=== PATIENT | male | born 1960 | race Caucasian/White ===

== ENCOUNTER → 2016-10-17 | Day surgery (SDC) | payer BC ==
[2016-10-03 13:18] VITALS: Ht 185.4 cm; Wt 84.1 kg
--- NOTE | 2016-10-16 14:50 | History and Physical: Surg Cnt ---
History & Physical Date Oct 16, 2016. Chief Complaint chronic sinusitis History of Present Illness The patient is a 55 year old male with complaints of recurrent and chronic sinusitis Additional History Hepatic Disease: No Endocrine Disorder: No Kidney Disease: No Hypertension: No Heart Disease: No Bleeding Tendencies: No Infectious Diseases: No Other: sarcoid Allergies Coded Allergies: NO KNOWN DRUG ALLERGIES (Verified Allergy, Unknown, ., 10/03/16) Home Medications Scheduled Fexofenadine Hcl (Kia), 180 MG PO QAM Fluticasone Propionate (Nasal) (Flonase Allergy Relief), 1 SPRAY ELTON QAM Scheduled PRN Ibuprofen (Ibuprofen), 1 CAP PO DIRECTED PRN for Pain Pseudoephedrine (Sudafed), 30 MG PO DAILY PRN for PRN Physical Examination Skin: warm/dry, no rash Eyes: normal inspection, EOMI, sclerae normal ENT: normal ENT inspection, pharynx normal Head: normocephalic, atraumatic Neck: supple, no adenopathy, trachea midline Respiratory/Chest: lungs clear, normal breath sounds, no respiratory distress Cardiovascular: regular rate, rhythm, no edema, no murmur Abdomen / GI: normal bowel sounds, non tender Back: normal inspection Extremities: normal inspection, normal range of motion Neurologic/Psych: no motor/sensory deficits, alert, normal reflexes, oriented x 3 Diagnosis chronic sinusitis/septal deviation Plan of Treatment septoplasty and endoscopic sinus surgery
[~2016-10-17] VITALS: Ht 185.4 cm; Wt 84.1 kg
[~2016-10-17] MED LIST: ATROPINE SULFATE 0.1 MG/ML 5ML SYR IV PRN; BACITRACIN OINT 15 GM TUBE ONE; CEFAZOLIN 2000 MG/60 ML D5W 60 ML IV SCH; DEXAMETHASONE SOD INJ 4 MG/ML VIAL ONE; EpHEDrine SULFATE 50MG/5ML SYR ONE; EpHEDrine SULFATE INJ 50 MG/ML AMP IV PRN; EpINEphrine INJ 1MG/ML AMP 1 MG/ML AMP ONE; FENTANYL CITRATE INJ 50 MCG/1 ML 2 ML VIAL IV PRN; FENTANYL CITRATE INJ 50 MCG/1 ML 2 ML VIAL ONE; FEXO1TAB46 PO; FLUT0.15 NAE; GELATIN SPONGE 12-7MM ONE; IBUP1CAP9 PO; LACTATED RINGER'S 1000ML 1,000 ML IV SCH; LIDO 2%/EPINEPHRINE 1:100000 20 ML VIAL INFIL ONE; LIDOCAINE 4% MPF SOAK 5 ML = 1 DOSE TOP ONE; LIDOCAINE HCL 2% 2 ML VIAL (20MG/ML) ONE; MIDAZOLAM HCL 1 MG/ML 2ML VIAL ONE; ONDANSETRON INJ 2 MG/ML 2 ML VIAL ONE; OXYC-57 PO; OXYCODONE/ACETAMINOPHEN 5-325 TAB PO PRN; OXYMETAZOLINE HCL 0.05% NA SPR 15 ML BTL SCH; PROPOFOL IV EMULSION 10 MG/ML 20 ML VIAL IV ONE; PSEU30TA20 PO; SODIUM CHLORIDE 0.9% 1000ML 1,000 ML IV SCH
--- NOTE | 2016-10-17 10:47 | History & Physical Bridge Note ---
H&P Re-Evaluation Bridge Note: I have examined the patient, reviewed the History & Physical and in the interval since the performance of the History & Physical I have noted the following changes of clinical significance: No changes noted
--- NOTE | 2016-10-17 10:49 | Discharge Instructions-SurgCtr ---
Discharge Instructions Date of Service Oct 17, 2016. Visit Reason for Visit: Chronic Sinusitis, Septal Deviation;Pre-Op Discharge Discharge Diagnosis / Problem: same Discharge Goals Goal(s): Improve disease control Activity Recommendations Activity Limitations: resume your previous activity Anesthesia . Post Anesthesia Instructions: If you have had General Anesthesia or IV Sedation: * Do not drive today. * Resume driving when surgeon permits. * Do not make important decisions or sign legal documents today. * Call surgeon for: 1. Temperature elevations greater than 101 degrees F. 2. Uncontrollable pain. 3. Excessive bleeding. 4. Persistent nausea and vomiting. 5. Medication intolerance (nausea, vomiting or rash). * For nausea and vomiting use only clear liquids such as: tea, soda, bouillon until nausea subsides, then gradually increase diet as tolerated. * If you have any concerns or questions, call your surgeon's office. If physician is unavailable and it is an emergency, call 911 or go to the nearest emergency room. . Instructions / Follow-Up Instructions / Follow-Up ACTIVITY RECOMMENDATIONS: * Being up and around is good, but no strenuous activity, heavy lifting or physical exertion for one week. * Keep your head elevated 30 degrees when lying down or sleeping. * Do not blow your nose for 48 hours, sniff back instead. * Avoid hot showers. OVER THE COUNTER MEDICATIONS: * You may use Tylenol * Avoid aspirin or aspirin containing products, e.g. as they may increase bleeding. SPECIAL CARE INSTRUCTIONS: * Expect to have bloody drainage from your nose and/or down your throat for one to three days. Change drip pad as needed. * Begin irrigating your nose with saline solution today, at least six to ten times per day and sniff back to help remove old clots or crust. * You may experience nasal and facial congestion, pain and pressure, this is normal. * Please call with any significant and/or progressive pain, redness, swelling around the eyes, visual changes, fever of 101.5 degrees F, active bleeding or any problems or concerns. * If active bleeding occurs, spray the nose three times at one minute intervals with Afrin spray and call or cell phone: . If unable to reach the doctor, go to the nearest Emergency Department. Special Diet: * Avoid extremely hot fluids. FOLLOW UP VISIT: Follow-up Visit with Dr. Rosario If not already scheduled, please call to schedule. Diet Recommendations Home Diet: no limitations Pending Studies Studies pending at discharge: no Medical Emergencies . Who to Call and When: Medical Emergencies: If at any time you feel your situation is an emergency, please call 911 immediately. . Non-Emergent Contact Non-Emergency issues call your: Primary Care Provider . . "Provider Documentation" section prepared by Swathi Rosario. [place] Drug Monitoring Program Search Results: no issues identified
--- NOTE | 2016-10-17 12:31 | Anesthesia Progress Nt - [facility] ---
Anesthesia Post Op Note Date & Time Oct 17, 2016 at 12:31 Vital Signs Pain Intensity: 0 Vital Signs Past 12 Hours Date Time Temp Pulse Resp B/P Pulse Ox O2 Delivery O2 Flow Rate FiO2 10/17/16 12:16 36.3 79 16 121/86 100 Humidified Oxygen 6 Diffusion Mask 10/17/16 08:44 36.9 68 16 142/88 98 Room Air Notes Mental Status: alert / awake / arousable, participated in evaluation Pt Amnestic to Procedure: Yes Nausea / Vomiting: adequately controlled Pain: adequately controlled Airway Patency, RR, SpO2: stable & adequate BP & HR: stable & adequate Hydration State: stable & adequate Anesthetic Complications: no major complications apparent
[2016-10-17 12:59] VITALS: TEMP 36.8
--- NOTE | 2016-10-17 13:02 | OPERATIVE REPORT ---
DATE OF OPERATION: 10/17/2016 PREOPERATIVE DIAGNOSIS: Chronic sinusitis. POSTOPERATIVE DIAGNOSIS: Same. PROCEDURE: Right and left frontal, right and left sphenoid, right and left total ethmoid and right and left maxillary sinus antrostomies. SURGEON: Dr. Rosario. ANESTHESIA: General LMA. COMPLICATIONS: None. BLOOD LOSS: 50 mL. HISTORY OF PRESENT ILLNESS: A 55-year-old gentleman with significant sinusitis since 1984. Because of the recurrent infections, the patient requested definitive treatment. PROCEDURE: The patient brought to the operating room and placed supine position. General anesthesia was induced using LMA, prepped, draped in usual sterile manner. The nose was decongested using cottonoids with a solution of 4 mL of 4% Xylocaine mixed with 1 mL of epinephrine. Injection of 2% Xylocaine 1:100,000 strength epinephrine was also used. The [email or web address] device was calibrated and used for the entire procedure. The right sphenoid cannulated with a guidewire and dilated using the 6 mm balloon as was the left sphenoid sinus. This was done with [employer] computer guidance. The right maxillary sinus was cannulated with guidewire and dilated using the 6 mm balloon as was left maxillary sinus. The right nasofrontal duct could not be cannulated initially. Therefore, the shaver was coupled with the [employer] device and used to open up the agger nasi cell, opening its anterior wall and then its posterior wall opening up the nasofrontal duct area. At this point, the guidewire was inserted with [employer] computer guidance and the frontal sinus was dilated using the 6 mm balloon. The guidewire was used as a marker. Frontal sinusotomy was completed by removing the posterior superior wall of the agger nasi cell, opening up the nasofrontal duct leaving the mucosa intact. At this point, total ethmoidectomy was performed opening up the bullae ethmoidalis going through the ground lamella into the posterior ethmoid air cells finding the skull base and lamina papyracea with the [employer] device, following these structures anteriorly exonerating all the posterior and then exonerating all the anterior ethmoid air cells along with significant amount of polypoid material. Maxillary sinus was opened by removing polypoid tissue at the posterior border at the anterior wall of the bullae ethmoidalis. Posteriorly the sphenoid was opened by removing polypoid tissue at the inferior border of the superior turbinate at the anterior face of the sphenoid. The left frontal sinusotomy, total ethmoidectomy, maxillary sinus antrostomy and sphenoidotomy were performed in a similar manner. Endoscopic septoplasty was performed. A left hemitransfixion incision was made and mucoperichondrium elevated off the left side of septum, bilateral posterior tunnels were elevated, superior and inferior tunnels were elevated and the large bony and cartilaginous spur projecting to the left was removed in small pieces using the Lázaro-Edwina rongeurs and using the ethmoid forceps. This returned the septum to the midline. The stents were placed into the sinuses, 2 mini stents in the nasofrontal ducts and 2 contour stents into the maxillary sinus ostia. A single piece of Gelfoam was used along the left side of the septum. The patient tolerated the procedure well and was taken to recovery area in satisfactory condition. I attest to the content of the Intraoperative Record and any orders documented therein. Any exceptions are noted below. KRYSTINA
[2016-10-17 13:45] VITALS: BP 164/93; PULSE 67; O2SAT 99
== END | disposition home or self-care (01) ==
LOC: X.SURG 08:04
PROVIDERS: ATTEND Otolaryngology
DX: J32.9 Chronic sinusitis, unspecified (principal); J34.2 Deviated nasal septum